=== PATIENT | female | born 1995 | race Two or more races ===

== ENCOUNTER 2017-11-23 18:21 | Emergency (ER) | payer OTHER ==
[~2017-11-23] VITALS: Ht 160 cm; Wt 68.0 kg
--- NOTE | 2017-11-23 18:54 | Emergency Room Report ---
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 She has obvious deformity with lower jaw twisted to right and slurred speech and unable to open mouth completely however during HPI patients slurred speech resolves, jaw deformity resolves and facial asymmetry resolves She endorses at [place] yesterday for MRI head that was "normal" and was told she had a "pre-stroke." However patient not admitted at that time Denies other medical problems Was given Rx for reglan as well Allergies: Coded Allergies: No Known Allergies (Unverified , 11/23/17) Patient History Past Medical History: none Past Surgical History: none Pertinent Family History: none Social History: Denies: smoking, alcohol use, drug use Now: No Immunizations: UTD Reviewed Nursing Documentation: PMH: Agreed, PSxH: Agreed Nursing Documentation-PMH Past Medical History: No Stated History Review of Systems All Other Systems: negative except mentioned in HPI Physical Exam Vital Signs Date Time Temp Pulse Resp B/P (MAP) Pulse Ox O2 Delivery O2 Flow Rate FiO2 11/23/17 18:11 98.6 110 20 138/78 100 Room Air Sp02 EP Interpretation: reviewed, normal General Appearance: normal inspection, well appearing, no apparent distress, alert, GCS 15, non-toxic Head: normocephalic, atraumatic, other - Intermittent fluctuating facial asymmetry of lower jaw, now patient's jaw deviated to left side, then resolves Eyes: bilateral eye PERRL, bilateral eye EOMI ENT: normal ENT inspection, hearing grossly normal, normal pharynx, no angioedema, normal voice, TMs + canals normal, uvula midline, moist mucus membranes Neck: normal inspection, full range of motion, supple, thyroid normal, no meningismus, no bony tend Respiratory: normal inspection, lungs clear, normal breath sounds, no rhonchi, no respiratory distress, no retraction, no accessory muscle use, no wheezing, speaking full sentences Cardiovascular #1: regular rate, rhythm, no edema, no JVD, normal capillary refill Gastrointestinal: normal inspection, normal bowel sounds, non tender, soft, no mass, no peritonitis, non-distended, no guarding, no hernia, no pulsatile mass Genitourinary: no CVA tenderness Musculoskeletal: normal inspection, back normal, normal range of motion, no calf tenderness, pelvis stable, Arabella's Sign negative Neurologic: normal inspection, alert, oriented x3, responsive, heat treat puller III-XII nml as tested, motor strength/tone normal, cerebellar normal, normal gait, speech normal Psychiatric: normal inspection, judgement/insight normal, mood/affect normal, no suicidal/homicidal ideation, no delusions Skin: normal inspection, normal color, no rash Lymphatic: normal inspection, no adenopathy Medical Decision Making Diagnostic Impression: Primary Impression: Jaw pain ER Course VSS, afebrile Very bizarre presentation of facial asymmetry of lower jaw, interval spontaneous resolution I highly doubt jaw dislocation would resolve on its own and then change side CT facial bones: no acute trauma or dislocation ?psych Feels better after motrin Slurred speech, lower jaw asymmetry resolved' Doubt CVA as well, anne with recent normal MRI brain at [facility] ER course: Patient has remained stable during ED stay. Disposition: Patient is to be discharged to home. Prescriptions given are motrin Patient is instructed to follow up with their primary care doctor within 5 days. Strict return precautions discussed with patient such as fever, chills, worsening/severe pain, nausea, vomiting, which may indicate severe illness. Patient verbalizes understanding and agrees with plan. Please note that this Emergency Department Report was dictated using [employer] battery inspector technology software, occasionally this can lead to erroneous entry secondary to interpretation by the dictation equipment Last Vital Signs Date Time Temp Pulse Resp B/P (MAP) Pulse Ox O2 Delivery O2 Flow Rate FiO2 11/23/17 18:11 98.6 110 20 138/78 100 Room Air Status: improved Disposition: HOME, SELF-CARE Scripts Ibuprofen* (MOTRIN*) 600 Mg Tablet 600 MG ORAL THREE TIMES A DAY for 7 Days, #30 TAB 0 Refills Prov: LULU WHALEN M.D. 11/23/17 LULU WHALEN M.D. Nov 23, 2017 18:54
[2017-11-23 19:05] VITALS: BP 138/78
[2017-11-23] MEDS ORDERED: IBUPROFEN600 MG ORAL (19:32)
[2017-11-23 19:40] VITALS: BP 138/78
--- NOTE | 2017-11-24 12:15 | Diagnostic Imaging Report ---
Indication: Pain, left jaw dislocation Technique: CT maxillofacial was performed utilizing automated exposure control without intravenous contrast material. Axial and coronal images were generated. CT dose: Total DLP 539.38 mGycm; CTDI vol 28.19 mGy Comparison: None Findings: No acute fracture is identified. The mandible, midface and nasal bones are intact. The orbits are unremarkable. Mastoid air cells are clear. There is mucosal thickening with retention cyst versus polyp in the left maxillary sinus.. The nasal septum is midline. Visualized intracranial compartment is unremarkable. Impacted/unerupted left maxillary third molar/wisdom tooth noted. Imaged cervical spine unremarkable. No prevertebral soft tissue abnormality is seen. Small cervical lymph nodes are noted bilaterally, none of which are pathologically enlarged by imaging size criteria. These may be reactive in etiology. IMPRESSION: No evidence of acute fracture. No temporomandibular joint dislocation. Impacted/unerupted left maxillary third molar/wisdom tooth. Inflammation of this impacted tooth not excludable, especially given adjacent mild left maxillary sinus disease. Dental exam/follow-up recommended. This corresponds with the statrad preliminary report, with mild discrepancy. Findings of the finalized report and follow-up recommendations discussed with Dr. Dr. STEEN of the ED 11/24/13. The CT scanner at [facility] is accredited by the [employer] and the scans are performed using protocols designed to limit radiation exposure to as low as reasonably achievable to attain images of sufficient resolution adequate for diagnostic evaluation.
== END 2017-11-23 19:40 | disposition home or self-care (01) ==
LOC: EDBD 18:21 → EMR 19:28
DX: R68.84 Jaw pain (principal); R51 Headache; K01.1 Impacted teeth
CPT/HCPCS: 70486; 99284